=== PATIENT | male | born 1945 | race Caucasian/White ===

== ENCOUNTER 2022-08-14 21:43 | Emergency (ER) | payer OTHER, MEDICARE ==
[~2022-08-14] VITALS: Ht 165.1 cm; Wt 61.2 kg
--- NOTE | 2022-08-14 21:55 | NUR ---
Dr Huynh into eval patient.
[2022-08-14] MEDS ORDERED: OXYCODONE HCL 5 MG TABLET PO ONE (22:45)
[2022-08-14] MEDS ORDERED: OXYCODONE HCL 5 MG TABLET ONE (22:46)
[2022-08-14] MEDS ORDERED: LISI10TA29 PO (22:49)
[2022-08-14] MEDS ORDERED: CARV6.252 PO (22:49)
[2022-08-14] MEDS ORDERED: ROSU5TAB PO (22:49)
[2022-08-14] MEDS ORDERED: OXYC5TAB3 PO (23:24)
--- NOTE | 2022-08-14 23:36 | NUR ---
Patient discharged to home in stable condition with taking patient home. Written and verbal after care instructions given. Patient verbalizes understanding of instructions. Stressed follow up or return to ER for worsening s/s.
[2022-08-14 23:40] VITALS: BP 115/79
== END 2022-08-14 23:43 | disposition home or self-care (01) ==
LOC: ER 21:48
DX: S82.832A Other fracture of upper and lower end of left fibula, initial encounter for closed fracture (principal); E78.5 Hyperlipidemia, unspecified; E03.9 Hypothyroidism, unspecified; Z79.899 Other long term (current) drug therapy; W01.0XXA Fall on same level from slipping, tripping and stumbling without subsequent striking against object, initial encounter; Y93.89 Activity, other specified; Y92.89 Other specified places as the place of occurrence of the external cause; Y99.8 Other external cause status
CPT/HCPCS: 73610; A4663

== ENCOUNTER 2023-05-19 21:29 | Inpatient (IN) | payer BC, MEDICARE ==
[~2023-05-19] VITALS: Ht 170.2 cm; Wt 66.4 kg
[~2023-05-19 21:29] MED LIST: CARV6.252 PO; LISI10TA29 PO; OXYC5TAB3 PO; ROSU5TAB PO
[2023-05-19] MEDS ORDERED: CEFEPIME HCL 1 G in IV DEXTROSE 5% 50 ML IV ONE (22:00)
[2023-05-19] MEDS ORDERED: ACETAMINOPHEN ES 500 MG TABLET PO ONE (22:00)
[2023-05-19 22:09] LABS: BASOPHILS # (AUTO) 0.1 K/UL (0.0-0.2); BASOPHILS % (AUTO) 0.5 % (0.0-2.0); EOSINOPHILS # (AUTO) 0.1 K/uL (0.0-0.7); EOSINOPHILS % (AUTO) 0.5 % (0.0-7.0); HEMATOCRIT 36.3 % (36.7-47.1); HEMOGLOBIN 11.3 g/dL (12.5-16.3); LYMPHOCYTES # (AUTO) 0.9 K/uL (0.8-4.8); LYMPHOCYTES % (AUTO) 7.5 % (20.5-51.5); MEAN CORPUSCULAR HGB CONC 31 g/dL (32.5-36.3); MEAN CORPUSCULAR VOLUME 80.8 fL (73.0-96.2); MONOCYTES # (AUTO) 0.8 K/uL (0.1-1.30); MONOCYTES % (AUTO) 6.3 % (0.0-11.0); NEUTROPHILS # (AUTO) 10.5 K/uL (1.8-8.9); NEUTROPHILS % (AUTO) 85.2 % (38.5-71.5); PLATELET COUNT (AUTO) 323 K/uL (152-348); RED CELL DISTRIBUTION WIDTH 19.1 % (12.1-16.2); WHITE BLOOD COUNT (AUTO) 12.4 K/uL (3.6-10.2)
[2023-05-19] MEDS ORDERED: CEFEPIME HCL 1 G VIAL ONE (22:15)
[2023-05-19 22:26] LABS: DIFFERENTIAL COMMENT 1
[2023-05-19 22:33] LABS: CALCIUM 9.1 mg/dL (8.5-10.1); CARBON DIOXIDE 25 mmol/L (21-32); CHLORIDE 104 mmol/L (98-107); CREATININE 1.2 mg/dL (0.6-1.3); GLUCOSE 94 mg/dL (74-106); POTASSIUM 4.2 mmol/L (3.5-5.1); SODIUM SERUM 138 mmol/L (136-145); UREA NITROGEN, BLOOD 24 mg/dL (7-18)
[2023-05-19 22:46] LABS: ALANINE AMINOTRANSFERASE 12 U/L (16-63); ALBUMIN 3.1 g/dL (3.4-5.0); ALKALINE PHOSPHATASE 77 U/L (50-136); ASPARTATE AMINOTRANSFERASE 10 U/L (15-37); BILIRUBIN,DIRECT 0.2 mg/dL (0.0-0.2); BILIRUBIN,TOTAL 0.5 mg/dL (0.2-1.0); NT-PRO BNP 1750 pg/mL (0-125); TOTAL PROTEIN, SERUM 7.9 g/dL (6.4-8.2)
[2023-05-19] MEDS ORDERED: IV NORMAL SALINE 500 ML IV ONE (23:15)
[2023-05-19 23:28] LABS: *BILIRUBIN,URIN NEGATIVE (NEGATIVE); *BLOOD, URINE 2+ (NEGATIVE); *CLARITY,URINE CLEAR (CLEAR); *COLOR,URINE YELLOW (YELLOW); *KETONES,URINE 1+ (NEGATIVE); *PROTEIN,URINE 2+ (NEGATIVE); *UROBILINOGEN,URINE 0.2 E.U./dl (NORMAL); LEUKOCYTE ESTERASE ,URINE NEGATIVE (NEGATIVE); NITRITE, URINE NEGATIVE (NEGATIVE); UGLUCOSE NEGATIVE (NEGATIVE)
[2023-05-19] MEDS ORDERED: ASPI81TA31 PO (23:47)
[2023-05-19] MEDS ORDERED: TORS20TA3 PO (23:47)
[2023-05-19] MEDS ORDERED: ROSU40TA PO (23:47)
[2023-05-19] MEDS ORDERED: WARF1TAB86 PO (23:47)
[2023-05-19] MEDS ORDERED: METH5TAB70 PO (23:47)
[2023-05-19] MEDS ORDERED: DRON10CA5 PO (23:47)
[2023-05-19] MEDS ORDERED: ALEN70TA80 PO (23:47)
[2023-05-20 00:09] LABS: RBC,URINE 50-80 /HPF (0-3); WBC,URINE 0-3 /HPF (0-3)
[2023-05-20 00:10] LABS: BACTERIA,URINE FEW /HPF (NONE SEEN); SQUAMOUS EPITHELIAL CELL,UR FEW /HPF (NONE SEEN)
[2023-05-20] MEDS ORDERED: REMEDY ESSENTIAL ZINC PASTE 113 GM TP PRN (01:00)
[2023-05-20] MEDS ORDERED: ACETAMINOPHEN 325 MG TABLET PO PRN (01:00)
[2023-05-20] MEDS ORDERED: ONDANSETRON 4 MG/2 ML VIAL IV PRN (01:00)
[2023-05-20] MEDS ORDERED: IV NS 1000 ML 1,000 ML IV PRN (01:00)
[2023-05-20] MEDS ORDERED: MAGNESIUM HYDROXIDE 30 ML LIQUID UDC PO PRN (01:00)
[2023-05-20] MEDS ORDERED: CEFTRIAXONE /D5W 50ML IVPB **ER PYXIS IV ONE (01:38)
[2023-05-20] MEDS: CEFTRIAXONE 1 G in IV DEXTROSE 5% 50 ML IV SCH (01:41)
[2023-05-20] MEDS ORDERED: METHIMAZOLE 5 MG TABLET PO SCH (09:00)
[2023-05-20] MEDS ORDERED: CITA40TA22 PO (09:05)
[2023-05-20] MEDS ORDERED: [UNRECOGNIZED DRUG - REMARK] (09:05)
[2023-05-20] MEDS ORDERED: BUPR150T5 PO (09:05)
[2023-05-20] MEDS ORDERED: TADA5TAB2 PO (09:05)
[2023-05-20] MEDS ORDERED: ESCI10TA PO (11:17)
[2023-05-20] MEDS ORDERED: DUTA0.5C37 PO (11:18)
[2023-05-20] MEDS ORDERED: ALPR0.5T8 PO (11:19)
[2023-05-20] MEDS ORDERED: ASPIRIN 81 MG TAB.CHEW ONE (16:53)
[2023-05-20] MEDS ORDERED: LISINOPRIL 10 MG TABLET ONE (16:55)
[2023-05-20] MEDS ORDERED: CARVEDILOL 6.25 MG TABLET ONE ×2 (16:55→21:24)
[2023-05-20] MEDS ORDERED: WARFARIN SODIUM 2 MG TABLET ONE (16:55)
[2023-05-20] MEDS ORDERED: WARFARIN SODIUM 2 MG TABLET PO ONE (17:00)
[2023-05-20] MEDS ORDERED: WARFARIN SODIUM 1 MG TABLET PO SCH (17:00)
[2023-05-20] MEDS: ASPIRIN 81 MG TAB.CHEW PO SCH (17:14)
[2023-05-20] MEDS: CARVEDILOL 6.25 MG TABLET PO SCH ×2 (17:14→21:27)
[2023-05-20] MEDS: LISINOPRIL 10 MG TABLET PO SCH (17:15)
[2023-05-20] MEDS ORDERED: ATORVASTATIN 20 MG TABLET ONE (21:25)
[2023-05-20] MEDS: ATORVASTATIN 40 MG TABLET PO SCH (21:27)
[2023-05-20] MEDS ORDERED: CEFTRIAXONE 1 G VIAL ONE (23:03)
[2023-05-21] VITALS: BP 135/46; TEMP 98; O2SAT 96
[2023-05-21] MEDS: CEFTRIAXONE 1 G in IV DEXTROSE 5% 50 ML IV SCH (00:45)
[2023-05-21 07:37] LABS: BASOPHILS # (AUTO) 0.1 K/UL (0.0-0.2); BASOPHILS % (AUTO) 0.6 % (0.0-2.0); EOSINOPHILS # (AUTO) 0.1 K/uL (0.0-0.7); EOSINOPHILS % (AUTO) 1.3 % (0.0-7.0); HEMATOCRIT 31.4 % (36.7-47.1); HEMOGLOBIN 10.1 g/dL (12.5-16.3); LYMPHOCYTES # (AUTO) 1.1 K/uL (0.8-4.8); LYMPHOCYTES % (AUTO) 12.8 % (20.5-51.5); MEAN CORPUSCULAR HEMOGLOBIN 25.3 uug (23.8-33.4); MEAN CORPUSCULAR HGB CONC 32 g/dL (32.5-36.3); MEAN CORPUSCULAR VOLUME 78.7 fL (73.0-96.2); MONOCYTES # (AUTO) 1.2 K/uL (0.1-1.30); MONOCYTES % (AUTO) 13.9 % (0.0-11.0); NEUTROPHILS % (AUTO) 71.4 % (38.5-71.5); PLATELET COUNT (AUTO) 277 K/uL (152-348); RED BLOOD CELL COUNT(AUTO) 3.99 MIL/uL (4.06-5.63); WHITE BLOOD COUNT (AUTO) 8.5 K/uL (3.6-10.2)
[2023-05-21 07:45] LABS: DIFFERENTIAL COMMENT 1
[2023-05-21] MEDS: ASPIRIN 81 MG TAB.CHEW PO SCH (08:07)
[2023-05-21] MEDS: LISINOPRIL 10 MG TABLET PO SCH (08:08)
[2023-05-21] MEDS: CARVEDILOL 6.25 MG TABLET PO SCH ×2 (08:08→20:28)
[2023-05-21 08:10] LABS: CALCIUM 8.3 mg/dL (8.5-10.1); CREATININE 0.9 mg/dL (0.6-1.3); PHOSPHOROUS 2.4 mg/dL (2.5-4.9)
[2023-05-21] MEDS ORDERED: METHIMAZOLE 5 MG TABLET PO SCH (09:00)
[2023-05-21 11:33] VITALS: BP 100/59; TEMP 98.2; O2SAT 97
[2023-05-21 12:03] VITALS: BP_SYST 100; BP_SYST 130; BP_DIAS 59; BP_DIAS 64; BP_DIAS 74
[2023-05-21 15:54] VITALS: BP 125/74; TEMP 99.3; O2SAT 97
[2023-05-21] MEDS ORDERED: NEUTRA PHOS PACKET PO ONE (16:30)
[2023-05-21] MEDS ORDERED: WARFARIN SODIUM 2 MG TABLET PO ONE (17:00)
[2023-05-21] MEDS ORDERED: WARFARIN SODIUM 1 MG TABLET PO SCH (17:00)
[2023-05-21 20:00] VITALS: BP 153/91; TEMP 99.7; O2SAT 97
[2023-05-21] MEDS: ATORVASTATIN 40 MG TABLET PO SCH (20:20)
[2023-05-21] MEDS ORDERED: ALPRAZOLAM 0.5 MG TABLET PO ONE (20:30)
[2023-05-22] VITALS: BP 93/55; TEMP 98; O2SAT 96
[2023-05-22 04:00] VITALS: BP 136/70; TEMP 98; O2SAT 96
[2023-05-22] MEDS: ALENDRONATE SODIUM 70 MG TABLET PO SCH ×2 (06:12→06:20)
[2023-05-22 07:44] LABS: CALCIUM 9.1 mg/dL (8.5-10.1); CARBON DIOXIDE 29 mmol/L (21-32); CHLORIDE 105 mmol/L (98-107); CREATININE 0.9 mg/dL (0.6-1.3); GLUCOSE 89 mg/dL (74-106); PHOSPHOROUS 3.3 mg/dL (2.5-4.9); POTASSIUM 4.3 mmol/L (3.5-5.1); SODIUM SERUM 141 mmol/L (136-145); UREA NITROGEN, BLOOD 15 mg/dL (7-18)
[2023-05-22 08:00] VITALS: BP 134/64; TEMP 97.4; O2SAT 95
[2023-05-22] MEDS: ASPIRIN 81 MG TAB.CHEW PO SCH (09:08)
[2023-05-22] MEDS: CARVEDILOL 6.25 MG TABLET PO SCH (09:09)
[2023-05-22] MEDS: LISINOPRIL 10 MG TABLET PO SCH (09:10)
[2023-05-22 11:00] VITALS: BP 111/70; TEMP 98.1; O2SAT 98
[2023-05-22 11:27] VITALS: BP 111/70; TEMP 98.1; O2SAT 98
[2023-05-22 11:28] VITALS: BP_SYST 111; BP_SYST 124; BP_SYST 127; BP_DIAS 70; BP_DIAS 81; BP_DIAS 83
[2023-05-23] MEDS ORDERED: ENSURE ENLIVE (VAN) 240 ML LIQUID PO SCH (09:00)
== END 2023-05-22 15:00 | disposition home health service (06) | DRG 74 ==
LOC: ER 21:29 → TRANSITION 05-20 00:45 → TELE3 05-20 23:00
PROVIDERS: ADMIT Nurse Practitioner Acute Care; ATTEND Nurse Practitioner Acute Care
DX: G90.8 Other disorders of autonomic nervous system (principal); I48.92 Unspecified atrial flutter; I50.30 Unspecified diastolic (congestive) heart failure; I48.91 Unspecified atrial fibrillation; E03.9 Hypothyroidism, unspecified; I25.10 Atherosclerotic heart disease of native coronary artery without angina pectoris; I11.0 Hypertensive heart disease with heart failure; F32.A Depression, unspecified; E78.5 Hyperlipidemia, unspecified; I95.9 Hypotension, unspecified; R50.9 Fever, unspecified; M81.0 Age-related osteoporosis without current pathological fracture; Z79.01 Long term (current) use of anticoagulants; Z95.1 Presence of aortocoronary bypass graft; Z86.718 Personal history of other venous thrombosis and embolism; Z95.0 Presence of cardiac pacemaker; Z95.3 Presence of xenogenic heart valve; Z91.81 History of falling; Z87.81 Personal history of (healed) traumatic fracture; Z79.899 Other long term (current) drug therapy
CPT/HCPCS: 36415; 70450; 71045; 83605; 83735; 84100; 84443; 84484; 85025; 85610; 85730; 87040; 93005; 93307; 93880; A9150; G0378; J0692; J0696; J8499